=== PATIENT | male | born 1980 | race Two or more races ===

== ENCOUNTER 2016-07-07 17:50 | Emergency (ER) | payer BC ==
--- NOTE | 2016-07-07 17:58 | ER Document Report ---
ED Medical Screen (RME) - General Stated Complaint: SPIDER BITE Mode of Arrival: Ambulatory Information source: Patient Notes: Patient presents to the emergency department with recent abscess opened and drained in [place]. He reports he thinks area is getting smaller but he still has a hole in his side. Reports decreased pain. Denies f/n/v/d. He reports he is taking bactrim. I have greeted and performed a rapid initial assessment of this patient. A comprehensive ED assessment and evaluation of the patient, analysis of test results and completion of the medical decision making process will be conducted by additional ED providers.
--- NOTE | 2016-07-07 19:32 | ER Document Report ---
HPI - HPI Patient complains to provider of: lower back abscess recheck Pain Level: 0 Context: Patient is a 36-year-old male that comes emergency department for chief complaint of wanting a recheck of a drained abscess on his lower back. Patient states that also 4 days ago the abscess was drained, he was placed on Bactrim, he states that the core actually became very soft and he pulled it out, he states that since that time the baby red hardened area has shrunk to less than half the size, he states he just wants to make sure it is going away. He denies fever or chills, diabetes, or history of the same. He denies any daily medications otherwise. - CARDIOVASCULAR Cardiovascular: DENIES: Chest pain - DERM Skin Color: Normal Past Medical History - General Information source: Patient - Social History Smoking Status: Former Smoker Chew tobacco use (# tins/day): No Frequency of alcohol use: Social Drug Abuse: None Lives with: Family Family History: Reviewed & Not Pertinent Patient has suicidal ideation: No Patient has homicidal ideation: No - Medical History Medical History: Negative Renal/ Medical History: Denies: Hx Peritoneal Dialysis Surgical Hx: Negative - Immunizations Immunizations up to date: Yes Hx Diphtheria, Pertussis, Tetanus Vaccination: Yes Vertical Provider Document - CONSTITUTIONAL General Appearance: WD/WN, No Apparent Distress - INFECTION CONTROL TRAVEL OUTSIDE OF THE [place] IN LAST 30 DAYS: No - HEENT HEENT: Atraumatic, Normal ENT Exam, Normocephalic - NECK Neck: Normal Inspection - RESPIRATORY Respiratory: Breath Sounds Normal, No Respiratory Distress O2 Sat by Pulse Oximetry: 99 - CARDIOVASCULAR Cardiovascular: Regular Rate, Regular Rhythm - GI/ABDOMEN Gastrointestinal: Abdomen Soft, Abdomen Non-Tender - MUSCULOSKELETAL/EXTREMETIES Musculoskeletal/Extremeties: SHUN MAN, Non-Tender - DERM Adult Front & Back Diagram: 1 - There is a indentation in the skin with very faint erythema surrounding this indentation, there is pink granulation tissue in the bottom of this indentation, there is no induration or fluctuance, there is no tenderness, there is no drainage Course - Re-evaluation Re-evalutation: Luis Gaming to be in almost completely healed abscess with good granulation tissue where he took out the core of the abscess, no significant surrounding erythema, no induration, no drainage, no tenderness to the area. Wound dressing placed, advised patient to continue what he is currently doing because it appears to be working. Discussed wound care and return precautions. Patient states understanding and agreement. - Vital Signs Vital signs: Temp Pulse Resp BP Pulse Ox 97.8 F 71 14 137/75 H 99 07/07/16 17:56 07/07/16 17:56 07/07/16 17:56 07/07/16 17:56 07/07/16 17:56 Discharge - Discharge Clinical Impression: Abscess re-check Condition: Stable Disposition: HOME, SELF-CARE Additional Instructions: The abscess appears to be healing well. Continue and complete the Bactrim antibiotic, continue the cleaning and dressings. If any signs of new infection occur including redness, swelling, fever, etc. please return to the emergency department.
[2016-07-07 20:09] VITALS: BP 102/61
== END 2016-07-07 20:09 | disposition home or self-care (01) ==
LOC: ER 17:50
DX: L02.212 Cutaneous abscess of back [any part, except buttock and flank] (principal); M54.5 Low back pain
CPT/HCPCS: 99282